=== PATIENT | female | born 1995 | race Two or more races ===

== ENCOUNTER 2023-12-30 21:00 | Emergency (ER) | payer OTHER ==
[~2023-12-30] VITALS: Ht 149.9 cm; Wt 54.4 kg
[2023-12-30] MEDS ORDERED: LIDOCAINE HCL/MPF 1% 30 ML VIAL IJ ONE (21:54)
[2023-12-30 22:42] VITALS: BP 107/66; TEMP 97.8; O2SAT 99
== END 2023-12-30 22:43 | disposition home or self-care (01) ==
LOC: ER 21:03
DX: L03.011 Cellulitis of right finger (principal)
CPT/HCPCS: 10060; 99282; A6403; J3490